=== PATIENT | male | born 1980 | race Caucasian/White ===

== ENCOUNTER 2016-07-24 20:47 | Emergency (ER) | payer BC, OTHER ==
[2016-07-25] MEDS ORDERED: OXYCODONE-ACETAMINOPHEN 5-325 MG TABLET PO ONE (00:41)
[2016-07-25] MEDS ORDERED: LIDOCAINE 1% INJ-PF (10 MG/ML) 30 ML SDV INJ ONE (00:41)
--- NOTE | 2016-07-25 00:41 | ER Document Report ---
ED General - General Chief Complaint: Finger laceration Stated Complaint: LEFT FINGER LACERATION Time seen by provider: 00:30 Mode of Arrival: Ambulatory Information source: Patient TRAVEL OUTSIDE OF THE [place] IN LAST 30 DAYS: No - HPI Notes: Patient presents with report of left index finger laceration occurred when he was working with a kitchen knife. The patient reports minimal paresthesia distal to the laceration was got for range of motion. The patient denies any fever or chills. He states the knife was reasonably clean. - Related Data Allergies/Adverse Reactions: No Known Allergies Allergy (Unverified 07/25/16 01:19) Past Medical History - Social History Smoking Status: Never Smoker Smoking Education Provided: No Frequency of alcohol use: None Drug Abuse: None Lives with: Friend Family History: None Renal/ Medical History: Denies: Hx Peritoneal Dialysis Review of Systems - Review of Systems Constitutional: denies: Fever EENT: No symptoms reported Cardiovascular: No symptoms reported Respiratory: No symptoms reported Gastrointestinal: No symptoms reported Skin: See HPI Neurological/Psychological: Numbness, Other - No weakness or loss of motion. Physical Exam - Vital signs Vitals: Temp Pulse Resp BP Pulse Ox 97.7 F 72 18 143/85 H 98 07/24/16 21:25 07/24/16 21:25 07/24/16 21:25 07/24/16 21:25 07/24/16 21:25 - General General appearance: Appears well - Extremities General upper extremity: Nontender, Normal ROM General lower extremity: Normal inspection, Nontender, Normal color, Normal ROM , Normal temperature, Normal weight bearing. No: Lo's sign Hand: Nontender, Laceration - Laceration 1.2 cm appreciated to the lateral aspect of the DIP joint. There is no exposed bone or nerve or tendon. Patient has good distal capillary refill and has excellent tendon function in flexion and extension, but he has a very mild subjective paresthesia noted distal to the laceration on the ipsilateral side only. - Neurological Neuro grossly intact: Yes Cognition: Normal Orientation: AAOx4 [place] Coma Scale Eye Opening: Spontaneous [place] Coma Scale Verbal: Oriented [place] Coma Scale Motor: Obeys Commands Lucian Coma Scale Total: 15 Speech: Normal Motor strength normal: LUE, RUE, LLE, RLE Additional motor exam normals: Equal food and nutrition services supervisor, Dorsiflexion, Plantar flexion. No: Weakness Sensory: Normal Course - Re-evaluation Re-evalutation: 07/25/16 01:36 Following discussion of risks, alternatives, benefits, the patient agreed to suture repair of his laceration. The wound area was cleaned and Betadine prepped, then the wound was infiltrated with lidocaine 1% approximately 1 mL, then the wound was explored with no obvious laceration of the tendon, or nerve or exposed bone. Then the wound was reapproximated and closed using running suture of 4.0 nonabsorbable suture material. Patient tolerated the procedure well. Comp patient's none. Blood loss approximately 15 mL. No evidence for obvious foreign body or tendon injury other acute process. Questionable mild distal paresthesia to the wound which is typical for finger laceration in this location. Antibiotic ointment wound and finger splint applied. 07/25/16 02:09 Tetanus is up-to-date. 07/25/16 02:10 - Vital Signs Vital signs: Temp Pulse Resp BP Pulse Ox 97.7 F 72 18 143/85 H 98 07/24/16 21:25 07/24/16 21:25 07/24/16 21:25 07/24/16 21:25 07/24/16 21:25 Discharge - Discharge Clinical Impression: Finger laceration Qualifiers: Encounter type: initial encounter Qualified Code(s): S61.219A - Laceration without foreign body of unspecified finger without damage to nail, initial encounter Condition: Stable Disposition: HOME, SELF-CARE Instructions: Laceration Care (OM) Additional Instructions: Sutures out in 10 days. Return to the ED in case of severe pain, swelling, redness. Apply antibiotic ointment to the wound twice a day. Take ibuprofen as directed for pain.
[2016-07-25] MEDS ORDERED: NAPROXEN 250 MG TABLET PO ONE (00:42)
[2016-07-25] MEDS ORDERED: BACITRACIN ZINC OINTMENT 15 GM TP ONE (02:07)
[2016-07-25] MEDS ORDERED: HYDROCODONE/ACETAMINOPHEN 5-325 MG 6 TAB/DSPK PO PRN (02:09)
[2016-07-25 02:47] VITALS: BP 117/77
== END 2016-07-25 02:48 | disposition home or self-care (01) ==
LOC: ER 20:47
PROC: 0HQGXZZ Repair Left Hand Skin, External Approach (ICD-10-PCS; principal; 2016-07-24)
DX: S61.219A Laceration without foreign body of unspecified finger without damage to nail, initial encounter (principal); W26.0XXA Contact with knife, initial encounter
CPT/HCPCS: 99282; J3490

== ENCOUNTER 2016-08-04 10:46 | Emergency (ER) | payer BC ==
[2016-08-04 10:52] VITALS: BP 135/74
--- NOTE | 2016-08-04 10:59 | ER Document Report ---
ED Medical Screen (RME) - General Chief Complaint: Suture Removal Stated Complaint: REMOVAL OF STITCHEC Time seen by provider: 10:50 Mode of Arrival: Ambulatory Information source: Patient, [facility] Records Notes: This 35-year-old male here for suture removal from his left index finger. He had a laceration on 07/24/2016 sutures here in the emergency room. At that time he had some numbness to the ulnar aspect of the finger distal to the laceration. He continues to have decreased sensation there but there is some sensation felt. TRAVEL OUTSIDE OF THE [place] IN LAST 30 DAYS: No - Related Data Allergies/Adverse Reactions: No Known Allergies Allergy (Verified 08/04/16 10:49) Past Medical History - General Information source: Patient, [facility] Records - Social History Cigarette use (# per day): No Chew tobacco use (# tins/day): No Frequency of alcohol use: None Drug Abuse: None Occupation: [employer] Lives with: Spouse/Significant other - Medical History Medical History: Negative Surgical Hx: Negative Review of Systems - Review of Systems Constitutional: No symptoms reported EENT: No symptoms reported Cardiovascular: No symptoms reported Respiratory: No symptoms reported Gastrointestinal: No symptoms reported Genitourinary: No symptoms reported Musculoskeletal: See HPI Skin: No symptoms reported Hematologic/Lymphatic: No symptoms reported Neurological/Psychological: See HPI Physical Exam - Vital signs Vitals: Temp Pulse Resp BP Pulse Ox 98.3 F 63 16 135/74 H 99 08/04/16 10:50 08/04/16 10:50 08/04/16 10:50 08/04/16 10:50 08/04/16 10:50 Interpretation: Normal - General General appearance: Appears well, Alert In distress: None - HEENT Head: Normocephalic, Atraumatic Eyes: Normal Pupils: PERRL - Respiratory Respiratory status: No respiratory distress - Cardiovascular Rhythm: Regular - Abdominal Inspection: Normal - Back Back: Normal - Extremities General upper extremity: Other - Left index finger laceration on the volar ulnar distal area has healed well. Sutures will be removed. There is some decreased sensation distal to the laceration on the ulnar aspect of the finger. General lower extremity: Normal inspection - Neurological Neuro grossly intact: Yes - Psychological Associated symptoms: Normal affect, Normal mood - Skin Skin Temperature: Warm Skin Moisture: Dry Skin Color: Normal Course - Vital Signs Vital signs: Temp Pulse Resp BP Pulse Ox 98.3 F 63 16 135/74 H 99 08/04/16 10:50 08/04/16 10:50 08/04/16 10:50 08/04/16 10:50 08/04/16 10:50 Doctor's Discharge - Discharge Clinical Impression: Visit for suture removal Injury of digital nerve of left index finger Qualifiers: Encounter type: subsequent encounter Qualified Code(s): S64.491D - Injury of digital nerve of left index finger, subsequent encounter Condition: Stable Disposition: HOME, SELF-CARE Additional Instructions: Follow-up with Dr. Vogel at [facility] for surgery if the numbness in the fingertip continues to be a problem. Referrals: JOSHUA VOGEL, DO [ACTIVE STAFF] - Follow up as needed
== END 2016-08-04 11:11 | disposition home or self-care (01) ==
LOC: ER 10:46
DX: Z48.02 Encounter for removal of sutures (principal)